=== PATIENT | female | born 1940 | race African-American/Black ===

== ENCOUNTER 2021-12-02 11:38 | Emergency (ER) | payer OTHER ==
[~2021-12-02] VITALS: Ht 165.1 cm; Wt 75.7 kg
[2021-12-02 13:42] LABS: Albumin 3.6 g/dL (3.4-5.0); BUN/Creatinine Ratio 16.7; Calcium 9.5 mg/dL (8.5-10.1); Potassium 4.8 mmol/L (3.5-5.1)
[2021-12-02 13:45] LABS: Bilirubin, Total 0.2 mg/dL (0.2-1.0); Total Protein 6.8 g/dL (6.4-8.2)
[2021-12-02 13:46] LABS: Basophils # (auto) 0 10 ^3/uL (0-0.2); Eosinophils # (auto) 0 10 ^3/uL (0-0.8); Hemoglobin 9.8 g/dL (12.2-16.2); Monocytes # (auto) 0.5 10 ^3/uL (0-1.3); White Blood Cell 4.9 10^3/uL (4.4-10.8)
[2021-12-02 13:52] LABS: Eosinophils % (auto) 0.7 % (0.0-7.0); Lymphocytes # (auto) 0.9 10 ^3/uL (0.4-5.4); Mean Corpuscular Volume 79.4 fL (80.0-100.0); Monocytes % (auto) 10.8 % (0.0-12.0); Neutrophils # (auto) 3.4 10 ^3/uL (1.6-8.6); Red Cell Distribution Width 14.3 % (11.8-14.3)
[2021-12-02 13:53] LABS: Basophils % (auto) 0.7 % (0.0-2.0); Lymphocytes % (auto) 19.6 % (10.0-50.0); Neutrophils % (auto) 68.2 % (37.0-80.0); Nucleated Red Blood Cells % 0.1 %
[2021-12-02 13:54] LABS: Hematocrit 30.9 % (36.0-46.0); Mean Corpuscular Hgb Conc. 31.9 g/dL (32.0-36.0); Red Blood Cells 3.88 10^6/uL (4.0-5.20)
[2021-12-02 13:59] LABS: INR 1.03 (0.9-1.15)
[2021-12-02] MEDS ORDERED: IOHEXOL 350 MG/ML 100ML IJ ONE (14:05)
[2021-12-02 18:41] VITALS: BP 174/64
== END 2021-12-02 19:08 | disposition short-term general hospital (02) ==
LOC: ER 11:38
DX: I96 Gangrene, not elsewhere classified (principal); Z88.2 Allergy status to sulfonamides; Z20.822 Contact with and (suspected) exposure to COVID-19
CPT/HCPCS: 36415; 73201; 80053; 82962; 85025; 85610; 87426; 99285; C9803; Q9967; U0003

== ENCOUNTER 2024-02-16 09:12 | Emergency (ER) | payer OTHER ==
[~2024-02-16] VITALS: Ht 152.4 cm; Wt 71.1 kg
[2024-02-16 11:11] LABS: Basophils # (auto) 0 10 ^3/uL (0-0.2); Hemoglobin 9.7 g/dL (12.2-16.2); Monocytes # (auto) 0.7 10 ^3/uL (0-1.3)
[2024-02-16 11:13] LABS: Basophils % (auto) 0.6 % (0.0-2.0); Eosinophils # (auto) 0 10 ^3/uL (0-0.8); Eosinophils % (auto) 0.5 % (0.0-7.0); Hematocrit 30.9 % (36.0-46.0); Lymphocytes # (auto) 0.7 10 ^3/uL (0.4-5.4); Lymphocytes % (auto) 8.7 % (10.0-50.0); Mean Corpuscular Hemoglobin 24.5 pg (28.0-32.0); Mean Corpuscular Hgb Conc. 31.3 g/dL (32.0-36.0); Mean Corpuscular Volume 78.4 fL (80.0-100.0); Monocytes % (auto) 8.3 % (0.0-12.0); Neutrophils # (auto) 7.1 10 ^3/uL (1.6-8.6); Neutrophils % (auto) 81.9 % (37.0-80.0); Nucleated Red Blood Cells % 0.2 %; Red Blood Cells 3.95 10^6/uL (4.0-5.20); Red Cell Distribution Width 14.9 % (11.8-14.3); White Blood Cell 8.6 10^3/uL (4.4-10.8)
[2024-02-16 11:23] LABS: Alanine Aminotransferase 15 U/L (7-40); Albumin 3.5 g/dL (3.2-4.8); Alkaline Phosphatase 77 U/L (46-116); Anion Gap 10 (5-15); Aspartate Aminotransferase 20 U/L (13-40); BUN/Creatinine Ratio 11.8 (10.0-20.0); Bilirubin, Total 0.4 mg/dL (0.2-1.0); Blood Urea Nitrogen 17 mg/dL (9-23); Carbon Dioxide 18 mmol/L (20-30); Chloride 111 mmol/L (98-107); Glucose 83 mg/dL (74-106); Potassium 4.1 mmol/L (3.5-5.1); Sodium 139 mmol/L (136-145)
[2024-02-16 11:24] LABS: Total Protein 5.5 g/dL (5.7-8.2)
[2024-02-16 12:02] VITALS: BP 139/53; PULSE 89; RESP 16; TEMP 98.6; O2SAT 96
[2024-02-16 12:17] LABS: Urine Bacteria FEW /hpf (None Seen); Urine Blood Negative /uL (Negative); Urine Budding Yeast OCCASIONAL /hpf (None Seen); Urine Clarity Turbid (Clear); Urine Color Yellow (Yellow); Urine Hyaline Cast FEW /lpf (0 - 2); Urine Mucus FEW (None Seen); Urine Protein, UAD TRACE (Negative); Urine Specific Gravity 1.015 (1.001-1.035); Urine Urobilinogen Normal (Negative); Urine WBC 16 /hpf (0 - 5)
[2024-02-16] MEDS ORDERED: NITR-87 PO (12:27)
== END 2024-02-16 12:39 | disposition home or self-care (01) ==
LOC: ER 09:12
DX: E11.22 Type 2 diabetes mellitus with diabetic chronic kidney disease (principal); N18.30 Chronic kidney disease, stage 3 unspecified; N39.0 Urinary tract infection, site not specified; Z88.2 Allergy status to sulfonamides
CPT/HCPCS: 36415; 80053; 81001; 85025

== ENCOUNTER 2024-09-15 08:38 | Inpatient (IN) | payer OTHER ==
[2024-09-15] VITALS (10 sets, daily range): BP systolic 154–156; BP diastolic 55–90; PULSE 82–102; RESP 12–25; TEMP 98–98.7; O2SAT 92–100
[~2024-09-15] VITALS: Ht 152.4 cm; Wt 69.1 kg
[~2024-09-15 08:38] MED LIST: NITR-87 PO
--- NOTE | 2024-09-15 08:59 | ECG ---
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
--- NOTE | 2024-09-15 09:36 | ED.PDOC ---
Altered Mental Status HPI Comments 84-year-old female brought in by EMS presents with a chief complaint of ALOC x 1 day. Patient has history of Dementia, but according to EMS is typically A/Ox4 and GCS 15 per family at the scene. Patient was exposed recently to COVID-19 via her son who takes care of her. Patient is alert and able to answers questions, but is "confused". Blood sugar was 131. Chief Complaint: ALOC Time Seen by MD: 09:07 Primary Care Provider: DR WAITE Reviewed Notes: Medications, Allergies Allergies: Coded Allergies: Sulfa Antibiotics (Verified Allergy, Unknown, 12/02/21) Home Meds Active Scripts Nitrofurantoin Monohydrate Mac (Macrobid) 100 Mg Cap, 100 MG PO BID, #20 CAP Prov:THOM CLARK 02/16/24 Information Source: Patient, Emergency Med Personnel Mode of Arrival: EMS Severity: Unable to Care for Self Timing: Days Duration: Since onset Prehospital treatment: Accucheck Quality: Confusion Recent: None History of: Dementia Associated Signs and Symptoms: None Past Medical History PAST MEDICAL HISTORY: Anemia, DM Surgical History: Denies all surgeries 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 Family History Family History: Reviewed,noncontributory to illness Social History Smoker: Non-Smoker Alcohol: Denies ETOH Use Drugs: Denies Drug Use Lives In: Home Constitutional: denies: chills, diaphoresis, fatigue, fever, malaise, sweats, weakness, others EENTM: denies: blurred vision, double vision, ear bleeding, ear discharge, ear drainage, ear pain, ear ringing, eye pain, eye redness, hearing loss, mouth pain, mouth swelling, nasal discharge, nose bleeding, nose congestion, nose pain, photophobia, tearing, throat pain, throat swelling, voice changes, others Respiratory: denies: cough, hemoptysis, orthopnea, SOB at rest, shortness of breath, SOB with excertion, stridor, wheezing, others Cardiovascular: denies: chest pain, dizzy spells, diaphoresis, Dyspnea on exertion, edema, irregular heart beat, left arm pain, lightheadedness, palpitations, PND, syncope, others Gastrointestinal: denies: abdomen distended, abdominal pain, blood streaked bowels, constipated, diarrhea, dysphagia, difficulty swallowing, hematemesis, melena, nausea, poor appetite, poor fluid intake, rectal bleeding, rectal pain, vomiting, others Genitourinary: denies: abnormal vagina bleeding, burning, dyspareunia, dysuria, flank pain, frequency, hematuria, incontinence, pain, , vagina discharge, urgency, others Neurological: denies: dizziness, fainting, headache, left sided numbness, left sided weakness, numbness, paresthesia, pre-existing deficit, right sided numbness, right sided weakness, seizure, speech problems, tingling, tremors, weakness, others Musculoskeletal: denies: back pain, gout, joint pain, joint swelling, muscle pain, muscle stiffness, neck pain, others Integumetry: denies: bruises, change in color, change in hair/nails, dryness, laceration, lesions, lumps, rash, wounds, others Allergic/Immunocompromised: denies: Difficulty Healing, Frequent Infections, Hives, Itching, others Hematologic/Lymphatic: denies: anemia, blood clots, easy bleeding, easy bruising, swollen glands, others Endocrine: denies: excessive hunger, excessive sweating, excessive thirst, excessive urination, flushing, intolerance to cold, intolerance to heat, unexplained weight gain, unexplained weight loss, others Psychiatric: denies: anxiety, bipolar disorder, depression, hopeless, panic disorder, schizophrenia, sleepless, suicidal, others Unable to Obtain due to: Altered Mental Status All Other Systems: Reviewed and Negative Physical Exam General Appearance: No Apparent Distress, Normal, Other (PLESANTLY CONFUSED ) HEENT: Normal ENT Inspection, Pharynx Normal, TMs Normal Neck: Full Range of Motion, Non-Tender, Normal, Normal Inspection Respiratory: Chest Non-Tender, Lungs Clear, No Accessory Muscle Use, No Respiratory Distress, Normal Breath Sounds Cardiovascular: No Edema, No JVD, No Murmur, No Gallop, Normal Peripheral Pulses, Regular Rate/Rhythm Breast Exam: Deferred Gastrointestinal: No Organomegaly, Non Tender, No Pulsatile Mass, Normal Bowel Sounds, Soft Genitalia: Deferred Pelvic: Deferred Rectal: Deferred Extremities: No calf tenderness, Normal capillary refill, Normal inspection, Normal range of motion, Non-tender, No pedal edema Musculoskeletal : Apperance: Normal Neurologic: Alert, No Motor Deficits, Normal Affect, Normal Mood, No Sensory Deficits Cerebellar Function: Normal Reflexes: Normal Skin: Dry, Normal Color, Warm Lymphatic: No Adenopathy EKG EKG : Pulse Rate (adult): 92 Carefree: Normal Cardiac Rhythm: NSR Block: None Hypertrophy: None ST: Normal Comments T-WAVE FLATTENING IN LATERAL LEADS, PROLONG QTC at 547. Was a procedure done? Was a procedure done?: No Differential Diagnosis (ALOC) Differential Diagnosis: Dehydration, Hypoglycemia, Encephalopathy, Sepsis, CVA X-Ray, Labs, Meds, VS Vital Signs Date Time Temp Pulse Resp B/P (MAP) Pulse Ox O2 Delivery O2 Flow Rate FiO2 09/15/24 12:52 98.8 87 16 159/55 (89) 97 98.8 09/15/24 09:38 Room Air* 0 21 09/15/24 09:36 09/15/24 08:50 99.0 93 16 150/64 (92) 97 99.0 09/15/24 08:50 99.0 93 16 150/64 (92) 97 09/15/24 08:45 92 Lab Test 09/15/24 09:46 09/15/24 09:39 09/15/24 08:52 Range/Units SARS-CoV-2 Antigen (Rapid) Positive NEGATIVE White Blood Count 6.8 4.4-10.8 10^3/uL Red Blood Count 3.96 L 4.0-5.20 10^6/uL Hemoglobin 9.9 L 12.2-16.2 g/dL Hematocrit 30.9 L 36.0-46.0 % Mean Corpuscular Volume 78.0 L 80.0-100.0 fL Mean Corpuscular Hemoglobin 25.1 L 28.0-32.0 pg Mean Corpuscular Hemoglobin Concent 32.2 32.0-36.0 g/dL Red Cell Distribution Width 13.9 11.8-14.3 % Platelet Count 201 140-450 10^3/uL Mean Platelet Volume 7.1 6.9-10.8 fL Neutrophils (%) (Auto) 81.1 H 37.0-80.0 % Lymphocytes (%) (Auto) 4.1 L 10.0-50.0 % Monocytes (%) (Auto) 14.5 H 0.0-12.0 % Eosinophils (%) (Auto) 0.1 0.0-7.0 % Basophils (%) (Auto) 0.2 0.0-2.0 % Neutrophils # (Auto) 5.5 1.6-8.6 10 ^3/uL Lymphocytes # (Auto) 0.3 L 0.4-5.4 10 ^3/uL Monocytes # (Auto) 1.0 0-1.3 10 ^3/uL Eosinophils # (Auto) 0 0-0.8 10 ^3/uL Basophils # (Auto) 0 0-0.2 10 ^3/uL Nucleated Red Blood Cells 0.0 % Sodium Level 140 136-145 mmol/L Potassium Level 4.8 3.5-5.1 mmol/L Chloride Level 108 H 98-107 mmol/L Carbon Dioxide Level 21 20-31 mmol/L Anion Gap 11 5-15 Blood Urea Nitrogen 22 9-23 mg/dL Creatinine 1.38 H 0.550-1.02 mg/dL Glomerular Filtration Rate Calc 38 >90 mL/min BUN/Creatinine Ratio 15.9 10.0-20.0 Serum Glucose 133 H 74-106 mg/dL Calcium Level 9.9 8.7-10.4 mg/dL POC Glucose 142 H 70-106 mg/dl PATIENT: MAYKEL HILL ACCT: [id number] UNIT: [id number] : 1940 LOC: ER ROOM / BED: / AGE / SEX: 84 / F ADM STATUS: REG ER SERVICE 0924 ORDERING PHYSICIAN: JAMIE LOZA MD PROCEDURE(s): HWOCT - HEAD WITHOUT CONTRAST REASON: ro head bleed ORDER NUMBER(s): [id number], ACCESSION NUMBER(s): [id number] EXAM: CT HEAD WITHOUT CONTRAST INDICATION: ro head bleed TECHNIQUE: CT of the head without intravenous contrast. Coronal and sagittal reformatted images are submitted. Radiation Dose : 1. Head: CT Dose: CTDI volume is 60.96 mGy. Dose-length product is 1079.24 mGy*cm The dose indicators for CT are the volume Computed Tomography (CT) Dose Index (CTDIvol) and the Dose Length Product (DLP), and are measured in units of mGy and mGy-cm, respectively. These indicators are not patient dose, but values generated from the CT scanner acquisition factors. The report includes radiation exposure data for exposures received during this examination. All CT scans at this medical facility are performed using dose modulation techniques as appropriate to a performed exam including the following: Automated exposure control was utilized; adjustment of the MA and/or KV according to patient size; and use of iterative reconstruction technique. COMPARISON: None FINDINGS: There is no evidence of acute intracranial hemorrhage, extra-axial collection, mass effect, midline shift, herniation or hydrocephalus. There are periventricular and subcortical hypodensities, nonspecific, but likely reflecting sequelae of chronic microvascular ischemic changes. There is a calcified posterior right frontal lobe mass measuring 1.5 x 1.4 cm. The ventricles, sulci and cisterns are age appropriate. The call-white differentiation is intact. The visualized paranasal sinuses and mastoid air cells are clear. No depressed calvarial fracture. The surrounding soft tissues are unremarkable. IMPRESSION: 1. No evidence of acute intracranial abnormality. 2. Partially calcified 1.5 cm posterior right frontal lobe mass most consistent with a meningioma. ATED BY: MAYA BALDWIN MD DICTATED DATE/TIME: 09/15/24 100 SIGNED BY: MAYA BALDWIN MD SIGNED DATE/TIME: 09/15/24 100 PATIENT: MAYKEL HILL ACCT: [id number] UNIT: [id number] : 1940 LOC: ER ROOM / BED: / AGE / SEX: 84 / F ADM STATUS: REG ER SERVICE 0934 ORDERING PHYSICIAN: JAMIE LOZA MD PROCEDURE(s): CXR1 - CHEST XRAY 1 VIEW REASON: R/O PNA ORDER NUMBER(s): [id number], ACCESSION NUMBER(s): [id number] Procedure: XY CHEST XRAY 1 VIEW 09/15/2024 09:49 AM Indication: R/O PNA Comparison: None TECHNIQUE: XY CHEST XRAY 1 VIEW FINDINGS: Medical devices: None. Cardiomediastinal: The heart is normal in size. Pulmonary vasculature is within normal limits. Atherosclerotic calcification of the aortic arch noted. Lungs: No focal pulmonary opacity is seen. The costophrenic angles are clear. No pneumothorax. Bones/soft tissues: No acute abnormality is noted. IMPRESSION: 1. No acute cardiopulmonary disease. ATED BY: ODETTE MADSEN MD DICTATED DATE/TIME: 09/15/24 1016 SIGNED BY: ODETTE MADSEN MD SIGNED DATE/TIME: 09/15/24 1016 84-year-old female presents here with a LOC. on my examination she is able to answer all questions but per family she was confused more than normal. This time blood work has been done which does demonstrate evidence of anemia of unclear etiology. There was questionable fall therefore a CT scan of the brain has been done which demonstrates evidence of a meningioma but no evidence of intracranial hemorrhage. Son is positive for COVID therefore a test patient for COVID and she was also positive. At this time I believe she would benefit from inpatient admission. Hospitalist team has been contacted for admission. Time of 1ST Reevaluation: 09:37 Reevaluation 1ST: Unchanged Patient Education/Counseling: Diagnosis, Treatment, Prognosis Family Education/Counseling: Diagnosis, Treatment, Prognosis Departure 1 Departure Time of Disposition: 11:32 Impression: Primary Impression: Altered mental status Qualified Codes: R40.4 - Transient alteration of awareness Additional Impressions: Meningioma COVID-19 Anemia Qualified Codes: D64.9 - Anemia, unspecified Disposition: ADMITTED INPATIENT Admit to: Med Surg Condition: Fair Critical Care Note Critical Care Time?: No Stability Stability form required: No I personally scribed for JAMIE LOZA MD ([email or web address]) on 09/15/24 at 09:36. Electronically submitted by Davey Veliz ([email or web address]). I personally scribed for JAMIE LOZA MD ([email or web address]) on 09/15/24 at 12:31. Electronically submitted by Davey Veliz ([email or web address]). JAMIE LOZA MD Sep 15, 2024 09:36
[2024-09-15 09:45] LABS: Basophils # (auto) 0 10 ^3/uL (0-0.2); Basophils % (auto) 0.2 % (0.0-2.0); Eosinophils # (auto) 0 10 ^3/uL (0-0.8); Eosinophils % (auto) 0.1 % (0.0-7.0); Lymphocytes # (auto) 0.3 10 ^3/uL (0.4-5.4)
[2024-09-15 09:47] LABS: Hematocrit 30.9 % (36.0-46.0); Hemoglobin 9.9 g/dL (12.2-16.2); Lymphocytes % (auto) 4.1 % (10.0-50.0); Mean Corpuscular Hemoglobin 25.1 pg (28.0-32.0); Mean Corpuscular Hgb Conc. 32.2 g/dL (32.0-36.0); Monocytes % (auto) 14.5 % (0.0-12.0); Neutrophils # (auto) 5.5 10 ^3/uL (1.6-8.6); Neutrophils % (auto) 81.1 % (37.0-80.0); Platelet Count (auto) 201 10^3/uL (140-450); Red Blood Cells 3.96 10^6/uL (4.0-5.20); Red Cell Distribution Width 13.9 % (11.8-14.3); White Blood Cell 6.8 10^3/uL (4.4-10.8)
[2024-09-15 09:56] LABS: Potassium 4.8 mmol/L (3.5-5.1); Sodium 140 mmol/L (136-145)
[2024-09-15 09:57] LABS: Anion Gap 11 (5-15); Carbon Dioxide 21 mmol/L (20-31)
[2024-09-15 09:58] LABS: Calcium 9.9 mg/dL (8.7-10.4)
[2024-09-15 10:03] LABS: BUN/Creatinine Ratio 15.9 (10.0-20.0); Blood Urea Nitrogen 22 mg/dL (9-23)
[2024-09-15 10:04] LABS: Chloride 108 mmol/L (98-107); Glucose 133 mg/dL (74-106)
--- NOTE | 2024-09-15 10:06 | DVH ---
EXAM: CT HEAD WITHOUT CONTRAST INDICATION: ro head bleed TECHNIQUE: CT of the head without intravenous contrast. Coronal and sagittal reformatted images are submitted. Radiation Dose : 1. Head: CT Dose: CTDI volume is 60.96 mGy. Dose-length product is 1079.24 mGy*cm The dose indicators for CT are the volume Computed Tomography (CT) Dose Index (CTDIvol) and the Dose Length Product (DLP), and are measured in units of mGy and mGy-cm, respectively. These indicators are not patient dose, but values generated from the CT scanner acquisition factors. The report includes radiation exposure data for exposures received during this examination. All CT scans at this medical facility are performed using dose modulation techniques as appropriate to a performed exam including the following: Automated exposure control was utilized; adjustment of the MA and/or KV according to patient size; and use of iterative reconstruction technique. COMPARISON: None FINDINGS: There is no evidence of acute intracranial hemorrhage, extra-axial collection, mass effect, midline s hift, herniation or hydrocephalus. There are periventricular and subcortical hypodensities, nonspecific, but likely reflecting sequelae of chronic microvascular ischemic changes. There is a calcified posterior right frontal lobe mass measuring 1.5 x 1.4 cm. The ventricles, sulci and cisterns are age appropriate. The call-white differentiation is intact. The visualized paranasal sinuses and mastoid air cells are clear. No depressed calvarial fracture. The surrounding soft tissues are unremarkable. IMPRESSION: 1. No evidence of acute intracranial abnormality. 2. Partially calcified 1.5 cm posterior right frontal lobe mass most consistent with a meningioma.
--- NOTE | 2024-09-15 10:18 | DVH ---
Procedure: XY CHEST XRAY 1 VIEW 09/15/2024 09:49 AM Indication: R/O PNA Comparison: None TECHNIQUE: XY CHEST XRAY 1 VIEW FINDINGS: Medical devices: None. Cardiomediastinal: The heart is normal in size. Pulmonary vasculature is within normal limits. Athero sclerotic calcification of the aortic arch noted. Lungs: No focal pulmonary opacity is seen. The costophrenic angles are clear. No pneumothorax. Bones/soft tissues: No acute abnormality is noted. IMPRESSION: 1. No acute cardiopulmonary disease.
[2024-09-15 10:52] LABS: COVID19 ANTIGEN SOFIA FIA POSITIVE (NEGATIVE)
[2024-09-15 17:14] LABS: Urine Bacteria FEW /hpf (None Seen); Urine Blood Negative /uL (Negative); Urine Clarity Clear (Clear); Urine Color Light-Yellow (Yellow); Urine Protein, UAD 1+ (Negative); Urine Specific Gravity 1.016 (1.001-1.035); Urine Squamous Epithelial Cell FEW /hpf (<5); Urine Urobilinogen Normal (Negative); Urine WBC 1 /HPF (0-5); Urine pH 5.5 (5.0-9.0)
[2024-09-15] MEDS ORDERED: AZITHROMYCIN 500MG/ 250ML 250 ML IV ONE (17:15)
[2024-09-15] MEDS ORDERED: DEXTROSE (50%) 50ML SYRG IV PRN (17:15)
[2024-09-15] MEDS ORDERED: ALBUTEROL SULF 2.5 MG/0.5ML(0.5%) NEB SOLN NEB PRN (17:15)
[2024-09-15 18:06] LABS: Amphetamine Screen, Urine Neg (NEGATIVE); Barbiturate Scree,Urine Neg (NEGATIVE); Benzodiazephine Screen, Urine Neg (NEGATIVE); Cannabinoid Screen, Urine Neg (NEGATIVE); Cocaine Screen, Urine Neg (NEGATIVE); Opiate Scree,Urine Neg (NEGATIVE); Phencyclidine Screen, Urine Neg (NEGATIVE)
[2024-09-15] MEDS: cefTRIAXone 1GM/50ML D5W 50 ML IV ONE (18:07)
[2024-09-15] MEDS: SODIUM CHLORIDE 0.9% 1,000 ML IV SCH (18:07)
[2024-09-15] MEDS: DOXYCYCLINE 100MG/100ML 100 ML IV ONE (18:07)
--- NOTE | 2024-09-15 18:26 | DVHHP2 ---
History of Present Illness Reason for Visit: COVID positive History of Present Illness 84-year-old female brought in by EMS presents with a chief complaint of ALOC x 1 day. Patient has history of Dementia, but according to EMS is typically A/Ox4 and GCS 15 per family at the scene. Patient was exposed recently to COVID-19 via her son who takes care of her. Patient is alert and able to answers questions, but is "confused". Blood sugar was 131. Heme/Onc: Anemia NOS Endocrine: Diabetes Past Surgical History: None Family History: None Smoke: No ALCOHOL: none Drugs: None Lives: with Family Domestic Violence: Neg Review of Systems Neurological: Confusion Allergies: Coded Allergies: Sulfa Antibiotics (Verified Allergy, Unknown, 12/02/21) Medications Current Medications Medications Dose Ordered Sig/Eddie Route Start Time Stop Time Status Last Admin Dose Admin Albuterol 2.5 mg Q4HR NEB 09/15/24 18:00 Albuterol 2.5 mg Q2HPRN PRN NEB 09/15/24 17:15 Ipratropium [place] 0.5 mg Q4HR NEB 09/15/24 18:00 Sodium Chloride 1,000 ml @ 60 mls/hr [id number] IV 09/15/24 17:15 09/15/24 18:07 60 MLS/HR Enoxaparin Sodium 40 mg DAILY SC 09/16/24 10:00 Acetaminophen 650 mg Q6HP PRN PO 09/15/24 17:15 Ceftriaxone Sodium 50 ml @ 100 mls/hr DAILY@09 IV 09/16/24 09:00 Diagnostic Test (Pha) 1 strip ACHS 09/15/24 22:00 Insulin Human Regular ACHS SC 09/15/24 22:00 Dextrose 50 ml UD PRN IV 09/15/24 17:15 Doxycycline Hyclate 100 ml @ 50 mls/hr Q12H IV 09/16/24 10:00 Exam Vital Signs Vital Signs Date Time Temp Pulse Resp B/P (MAP) Pulse Ox O2 Delivery O2 Flow Rate FiO2 09/15/24 15:57 82 16 96 Room Air* 0 21 09/15/24 15:57 98.0 122/71 (88) 98.0 General Appearance: Alert (X2), Cooperative HEENT: Atraumatic, PERRLA, EOMI, Mucous membr. moist/pink Respiratory: Clear to auscultation, Normal air movement Cardiovascular: Normal S1, Normal S2, No murmurs Abdominal: Normal bowel sounds, Soft, No tenderness, No hepatospenomegaly, No masses Extremities: No clubbing, No cyanosis, No edema, Normal pulses, No tenderness/swelling Neuro: Strength at 5/5 X4 ext, Normal tone Labs/Xrays Labs Test 09/15/24 16:40 09/15/24 09:46 09/15/24 09:39 09/15/24 08:52 Range/Units Urine Color Light-yellow Yellow Urine Clarity Clear Clear Urine pH 5.5 5.0-9.0 Urine Specific [place] 1.016 1.001-1.035 Urine Protein 1+ H Negative Urine Ketones Negative Negative Urine Blood Negative Negative /uL Urine Nitrite Negative Negative Urine Bilirubin Negative Negative Urine Urobilinogen Normal Negative mg/dL Urine Leukocyte Esterase Negative Negative /uL Urine RBC 1 0 - 4 /hpf Urine Microscopic WBC 1 0-5 /HPF Urine Squamous Epithelial Cells Few <5 /hpf Urine Bacteria Few H None Seen /hpf Urine Glucose Normal Normal mg/dL Urine Opiates Screen Neg NEGATIVE Urine Fentanyl Screen Neg NEGATIVE Urine Barbiturates Screen Neg NEGATIVE Urine Phencyclidine Screen Neg NEGATIVE Urine Amphetamines Screen Neg NEGATIVE Urine Benzodiazepines Screen Neg NEGATIVE Urine Cocaine Screen Neg NEGATIVE Urine Cannabinoids Screen Neg NEGATIVE SARS-CoV-2 Antigen (Rapid) Positive NEGATIVE White Blood Count 6.8 4.4-10.8 10^3/uL Red Blood Count 3.96 L 4.0-5.20 10^6/uL Hemoglobin 9.9 L 12.2-16.2 g/dL Hematocrit 30.9 L 36.0-46.0 % Mean Corpuscular Volume 78.0 L 80.0-100.0 fL Mean Corpuscular Hemoglobin 25.1 L 28.0-32.0 pg Mean Corpuscular Hemoglobin Concent 32.2 32.0-36.0 g/dL Red Cell Distribution Width 13.9 11.8-14.3 % Platelet Count 201 140-450 10^3/uL Mean Platelet Volume 7.1 6.9-10.8 fL Neutrophils (%) (Auto) 81.1 H 37.0-80.0 % Lymphocytes (%) (Auto) 4.1 L 10.0-50.0 % Monocytes (%) (Auto) 14.5 H 0.0-12.0 % Eosinophils (%) (Auto) 0.1 0.0-7.0 % Basophils (%) (Auto) 0.2 0.0-2.0 % Neutrophils # (Auto) 5.5 1.6-8.6 10 ^3/uL Lymphocytes # (Auto) 0.3 L 0.4-5.4 10 ^3/uL Monocytes # (Auto) 1.0 0-1.3 10 ^3/uL Eosinophils # (Auto) 0 0-0.8 10 ^3/uL Basophils # (Auto) 0 0-0.2 10 ^3/uL Nucleated Red Blood Cells 0.0 % Sodium Level 140 136-145 mmol/L Potassium Level 4.8 3.5-5.1 mmol/L Chloride Level 108 H 98-107 mmol/L Carbon Dioxide Level 21 20-31 mmol/L Anion Gap 11 5-15 Blood Urea Nitrogen 22 9-23 mg/dL Creatinine 1.38 H 0.550-1.02 mg/dL Glomerular Filtration Rate Calc 38 >90 mL/min BUN/Creatinine Ratio 15.9 10.0-20.0 Serum Glucose 133 H 74-106 mg/dL Calcium Level 9.9 8.7-10.4 mg/dL POC Glucose 142 H 70-106 mg/dl ORDERING PHYSICIAN: JAMIE LOZA MD PROCEDURE(s): CXR1 - CHEST XRAY 1 VIEW REASON: R/O PNA ORDER NUMBER(s): [id number], ACCESSION NUMBER(s): [id number] Procedure: XY CHEST XRAY 1 VIEW 09/15/2024 09:49 AM Indication: R/O PNA Comparison: None TECHNIQUE: XY CHEST XRAY 1 VIEW FINDINGS: Medical devices: None. Cardiomediastinal: The heart is normal in size. Pulmonary vasculature is within normal limits. Atherosclerotic calcification of the aortic arch noted. Lungs: No focal pulmonary opacity is seen. The costophrenic angles are clear. No pneumothorax. Bones/soft tissues: No acute abnormality is noted. IMPRESSION: 1. No acute cardiopulmonary disease. ATED BY: ODETTE MADSEN MD DICTATED DATE/TIME: 09/15/24 1016 SIGNED BY: ODETTE MADSEN MD SIGNED DATE/TIME: 09/15/24 1016 CC: ORDERING PHYSICIAN: JAMIE LOZA MD PROCEDURE(s): HWOCT - HEAD WITHOUT CONTRAST REASON: ro head bleed ORDER NUMBER(s): [id number], ACCESSION NUMBER(s): [id number] EXAM: CT HEAD WITHOUT CONTRAST INDICATION: ro head bleed TECHNIQUE: CT of the head without intravenous contrast. Coronal and sagittal reformatted images are submitted. Radiation Dose : 1. Head: CT Dose: CTDI volume is 60.96 mGy. Dose-length product is 1079.24 mGy*cm The dose indicators for CT are the volume Computed Tomography (CT) Dose Index (CTDIvol) and the Dose Length Product (DLP), and are measured in units of mGy and mGy-cm, respectively. These indicators are not patient dose, but values generated from the CT scanner acquisition factors. The report includes radiation exposure data for exposures received during this examination. All CT scans at this medical facility are performed using dose modulation techniques as appropriate to a performed exam including the following: Automated exposure control was utilized; adjustment of the MA and/or KV according to patient size; and use of iterative reconstruction technique. COMPARISON: None FINDINGS: There is no evidence of acute intracranial hemorrhage, extra-axial collection, mass effect, midline shift, herniation or hydrocephalus. There are periventricular and subcortical hypodensities, nonspecific, but likely reflecting sequelae of chronic microvascular ischemic changes. There is a calcified posterior right frontal lobe mass measuring 1.5 x 1.4 cm. The ventricles, sulci and cisterns are age appropriate. The call-white differentiation is intact. The visualized paranasal sinuses and mastoid air cells are clear. No depressed calvarial fracture. The surrounding soft tissues are unremarkable. IMPRESSION: 1. No evidence of acute intracranial abnormality. 2. Partially calcified 1.5 cm posterior right frontal lobe mass most consistent with a meningioma. ATED BY: MAYA BALDWIN MD DICTATED DATE/TIME: 09/15/24 1003 SIGNED BY: MAYA BALDWIN MD SIGNED DATE/TIME: 09/15/24 1003 CC: Assessment/Plan Assessment/Plan COVID-19 viral infection--chief complaint of ALOC x1 day per family History of dementia but recent decreased alertness Reviewed CBC hemoglobin 9.9 Reviewed BMP creatinine 1.[address] head shows meningioma 1.5 cm Reviewed chest x-ray which is normal IV azithromycin and ceftriaxone DuoNeb q.4 hours Reorient patient to surrounding Anemia No active bleeding Continue to monitor lab Type 2 DM Regular insulin mild SS a.c. and HS Accu-Cheks per protocol Continue to monitor Reconcile home medication DVT prophylaxis PUD prophylaxis Labs in a.m. Discussed plan of care with the patient in which all questions concerns have been addressed Plan discussed with: Patient My Orders Orders - LAURI RODRIGUEZ [employer] WORK[employer] Procedure Category Date Status Time Albuterol Medneb PHA 09/15/24 In Process (Ventolin Medneb) 18:00 Albuterol Medneb PHA 09/15/24 In Process (Ventolin Medneb) 17:15 Ipratropium Medneb PHA 09/15/24 In Process (Atrovent Medneb) 18:00 Admit ADMIT 09/15/24 Transmitted 17:04 Sodium Chloride 0.9% PHA 09/15/24 In Process 17:15 Enoxaparin Sodium PHA 09/16/24 In Process (Lovenox) 10:00 Complete Blood Count LAB 09/16/24 Verified 04:00 Comprehensive LAB 09/16/24 Verified Metabolic Panel 04:00 Pt Request For Service PT 09/15/24 Logged 17:04 Condition: Fair BRUCE 09/15/24 In Process 17:04 Acetaminophen Tablet PHA 09/15/24 In Process (Tylenol Tablet) 17:15 Bedrest With Bathroom BRUCE 09/15/24 In Process Privileg 17:04 Ceftriaxone 1gm/50ml PHA 09/16/24 In Process D5w (Rocephin) 09:00 Glucose Blood PHA 09/15/24 In Process (Accu-Chek Comfort 22:00 Insulin R (Human) PHA 09/15/24 In Process (Insulin R) 22:00 Dextrose 50% Syringe PHA 09/15/24 In Process 17:15 2 Gm Sodium Diet DIET 09/15/24 Transmitted [facility] 09/15/24 In Process Clarification: 17:13 Doxycycline PHA 09/16/24 In Process 100mg/100ml 10:00 Doxycycline PHA 09/15/24 In Process 100mg/100ml 17:30 Date of Service: Sep 15, 2024 Billing Provider: LAURI RODRIGUEZ Common Visit Codes: [id number] INP/OBS CARE (HIGH) LAURI RODRIGUEZ Sep 15, 2024 18:26
[2024-09-15] MEDS: ALBUTEROL SULF 2.5 MG/0.5ML(0.5%) NEB SOLN NEB SCH (19:28)
[2024-09-15] MEDS: IPRATROPIUM BROM 0.5 MG/2.5ML INH SOL NEB SCH (19:29)
[2024-09-15] MEDS ORDERED: LORazepam 2MG/ML-1ML VIAL IV PRN (21:45)
[2024-09-15] MEDS: HALOPERIDOL LACTATE 5 MG/ML INJ VIAL IM ONE (21:47)
[2024-09-15] MEDS: InsuLIN REG 1unit/0.01ml Soln (100units/ml) SC SCH (22:00)
[2024-09-15] MEDS ORDERED: LORazepam 2MG/ML-1ML VIAL IM ONE (22:30)
[2024-09-15] MEDS: ACCU-CHEK COMFORT CURVE STRIP VI SCH (23:03)
[2024-09-16] VITALS (12 sets, daily range): BP systolic 93–151; BP diastolic 39–66; PULSE 62–110; RESP 12–18; TEMP 97.9–99.5; O2SAT 93–100
[2024-09-16] MEDS ORDERED: LISI20TA56 PO (04:35)
[2024-09-16] MEDS ORDERED: ASPI-543 PO (04:35)
[2024-09-16] MEDS ORDERED: FOLI-119 PO (04:35)
[2024-09-16] MEDS ORDERED: AML5T GT (04:35)
[2024-09-16] MEDS ORDERED: CLON0.1T PO (04:35)
[2024-09-16] MEDS ORDERED: LATA0.008 EACHEYE (04:35)
[2024-09-16] MEDS ORDERED: SIMV20TA20 PO (04:35)
[2024-09-16] MEDS ORDERED: LEVO-848 GT (04:35)
[2024-09-16] MEDS ORDERED: FAMO-12 PO (04:35)
[2024-09-16 06:30] LABS: Basophils # (auto) 0 10 ^3/uL (0-0.2); Basophils % (auto) 0.3 % (0.0-2.0); Eosinophils # (auto) 0 10 ^3/uL (0-0.8); Eosinophils % (auto) 0.1 % (0.0-7.0); Hematocrit 28.4 % (36.0-46.0); Hemoglobin 9.1 g/dL (12.2-16.2); Lymphocytes # (auto) 0.4 10 ^3/uL (0.4-5.4); Lymphocytes % (auto) 8.2 % (10.0-50.0); Mean Corpuscular Hemoglobin 25.1 pg (28.0-32.0); Mean Corpuscular Volume 78.5 fL (80.0-100.0); Monocytes # (auto) 0.9 10 ^3/uL (0-1.3); Neutrophils # (auto) 3.7 10 ^3/uL (1.6-8.6); Neutrophils % (auto) 73.4 % (37.0-80.0); Nucleated Red Blood Cells % 0.2 %; Platelet Count (auto) 190 10^3/uL (140-450); Red Blood Cells 3.62 10^6/uL (4.0-5.20); Red Cell Distribution Width 14.1 % (11.8-14.3); White Blood Cell 5.1 10^3/uL (4.4-10.8)
[2024-09-16 06:48] LABS: Alanine Aminotransferase 12 U/L (7-40); Albumin 3.8 g/dL (3.2-4.8); Alkaline Phosphatase 55 U/L (46-116); Anion Gap 10 (5-15); Aspartate Aminotransferase 24 U/L (13-40); BUN/Creatinine Ratio 14.7 (10.0-20.0); Bilirubin, Total 0.3 mg/dL (0.2-1.0); Blood Urea Nitrogen 20 mg/dL (9-23); Calcium 9.8 mg/dL (8.7-10.4); Carbon Dioxide 24 mmol/L (20-31); Chloride 107 mmol/L (98-107); Potassium 3.9 mmol/L (3.5-5.1); Sodium 141 mmol/L (136-145)
[2024-09-16 06:53] LABS: Glucose 109 mg/dL (74-106); Total Protein 5.5 g/dL (5.7-8.2)
[2024-09-16] MEDS ORDERED: ENOXAPARIN SOD 40 MG/0.4 ML SYRINGE SC SCH (10:00)
[2024-09-16] MEDS ORDERED: AZITHROMYCIN 500MG/ 250ML 250 ML IV SCH (10:00)
[2024-09-16] MEDS: cefTRIAXone 1GM/50ML D5W 50 ML IV SCH (10:36)
[2024-09-16] MEDS: ENOXAPARIN SOD 30 MG/0.3 ML SYRINGE SC SCH (10:36)
[2024-09-16] MEDS: DOXYCYCLINE 100MG/100ML 100 ML IV SCH (11:52)
--- NOTE | 2024-09-16 12:53 | DVHPN2 ---
Assessment/Plan Assessment/Plan Progress note 84 F with CKD, dementia, meningioma admitted for COVID. Physical exam Alert, oriented x3 b/l rales s1 s2 rrr abdomen soft nontender no LE edema or tenderness labs ekg imaging reviewed assessment and plan acute hypoxic respiratory failure 2/2 covid PNA acute metabolic encephalopathy 2/2 above, resolved microcytic anemia likely CKD CKD stage 3b Meningioma NIDDM dementia maintain spo2>94% decadron remdesivir resume home meds monitor CR diet renal dvt ppx lovenox medical decision maker Mathew (son) [phone] full code 20 minutes spent discussing goals of care Plan discussed with: Patient My Orders Orders - KIMBERLY BOND MD Procedure Category Date Status Time Albuterol Inhaler PHA 09/16/24 In Process (Ventolin Hfa) 12:00 Date of Service: Sep 16, 2024 Billing Provider: KIMBERLY BOND MD Common Visit Codes: [id number] INP/OBS CARE(HIGH) KIMBERLY BOND MD Sep 16, 2024 12:53
[2024-09-16] MEDS ORDERED: REMDESIVIR PER PHARMACY 0 ML IV SCH (13:00)
[2024-09-16] MEDS: DexAMETHasone SOD PHOS 10MG/1ML VIAL INJ IV ONE (13:22)
[2024-09-16] MEDS: REMDESIVIR 200mg in NS 210mL LOADING DOSE ADULT IV ONE (13:23)
[2024-09-16] MEDS: ACETAMINOPHEN 325 MG TAB PO PRN (22:05)
[2024-09-17 01:35] VITALS: BP 132/68; PULSE 82; RESP 18; TEMP 98; O2SAT 99
[2024-09-17 05:00] VITALS: BP 103/52; PULSE 74; RESP 19; TEMP 98.1; O2SAT 97
[2024-09-17 07:19] LABS: Anion Gap 9 (5-15); Carbon Dioxide 24 mmol/L (20-31); Potassium 3.9 mmol/L (3.5-5.1); Sodium 141 mmol/L (136-145)
[2024-09-17 07:20] LABS: Calcium 9.4 mg/dL (8.7-10.4)
[2024-09-17 07:24] LABS: Glucose 88 mg/dL (74-106)
[2024-09-17 07:25] LABS: BUN/Creatinine Ratio 15.4 (10.0-20.0); Blood Urea Nitrogen 21 mg/dL (9-23); White Blood Cell 2.9 10^3/uL (4.4-10.8)
[2024-09-17 07:28] LABS: Hematocrit 27.4 % (36.0-46.0); Hemoglobin 8.9 g/dL (12.2-16.2); Mean Corpuscular Hemoglobin 25.2 pg (28.0-32.0); Mean Corpuscular Hgb Conc. 32.6 g/dL (32.0-36.0); Mean Corpuscular Volume 77.3 fL (80.0-100.0); Platelet Count (auto) 175 10^3/uL (140-450); Red Blood Cells 3.55 10^6/uL (4.0-5.20); Red Cell Distribution Width 13.7 % (11.8-14.3)
[2024-09-17 07:30] LABS: Chloride 108 mmol/L (98-107)
[2024-09-17 07:32] LABS: Basophils % (manual) 0 (0.0-2.0); Blast Cells 0; Metamyelocytes % 0; Myelocytes % 0; Promyelocytes % 0; Reactive Lymphocytes 0
[2024-09-17 08:00] VITALS: RESP 18
[2024-09-17 08:44] LABS: Band Neutrophils % (manual) 2; Eosinophils % (manual) 2 (0-7); Lymphocytes % (manual) 14 (10.0-50.0); Monocytes % (manual) 23 (0-12)
[2024-09-17 08:45] LABS: Platelet Estimate Adequate
[2024-09-17 09:58] VITALS: PULSE 68; RESP 16; O2SAT 98
[2024-09-17] MEDS: ALBUTEROL SULF HFA 90MCG INH 200DOSE IN PRN (09:58)
[2024-09-17] MEDS: DexAMETHasone SOD PHOS 10MG/1ML VIAL INJ IV SCH (10:55)
--- NOTE | 2024-09-17 12:18 | DVHDS2 ---
Discharge Summary Date of Admission Sep 15, 2024 at 17:04 Date of Discharge: Sep 17, 2024 Labs/Diagnostic Data: Laboratory Results Test 09/17/24 06:20 09/17/24 06:00 09/16/24 05:47 09/15/24 16:40 POC Glucose 87 mg/dl (70-106) White Blood Count 2.9 10^3/uL (4.4-10.8) Red Blood Count 3.55 10^6/uL (4.0-5.20) Hemoglobin 8.9 g/dL (12.2-16.2) Hematocrit 27.4 % (36.0-46.0) Mean Corpuscular Volume 77.3 fL (80.0-100.0) Mean Corpuscular Hemoglobin 25.2 pg (28.0-32.0) Mean Corpuscular Hemoglobin Concent 32.6 g/dL (32.0-36.0) Red Cell Distribution Width 13.7 % (11.8-14.3) Platelet Count 175 10^3/uL (140-450) Mean Platelet Volume 7.5 fL (6.9-10.8) Neutrophils (%) (Auto) % (37.0-80.0) Lymphocytes (%) (Auto) % (10.0-50.0) Monocytes (%) (Auto) % (0.0-12.0) Basophils (%) (Auto) % (0.0-2.0) Neutrophils # (Auto) 10 ^3/uL (1.6-8.6) Lymphocytes # (Auto) 10 ^3/uL (0.4-5.4) Monocytes # (Auto) 10 ^3/uL (0-1.3) Differential Total Cells Counted 100.0 (100) Neutrophils % (Manual) 59 (37.0-80.0) Band Neutrophils % (Manual) 2 Lymphocytes % (Manual) 14 (10.0-50.0) Monocytes % (Manual) 23 (0-12) Eosinophils % (Manual) 2 (0-7) Basophils % (Manual) 0 (0.0-2.0) Metamyelocytes % (manual) 0 Myelocytes % (Manual) 0 Promyelocytes % (Manual) 0 Blast Cells % (Manual) 0 Reactive Lymphocytes 0 Platelet Estimate Adequate Microcytosis Slight Sodium Level 141 mmol/L (136-145) Potassium Level 3.9 mmol/L (3.5-5.1) Chloride Level 108 mmol/L (98-107) Carbon Dioxide Level 24 mmol/L (20-31) Anion Gap 9 (5-15) Blood Urea Nitrogen 21 mg/dL (9-23) Creatinine 1.36 mg/dL (0.550-1.02) Glomerular Filtration Rate Calc 38 mL/min (>90) BUN/Creatinine Ratio 15.4 (10.0-20.0) Serum Glucose 88 mg/dL (74-106) Calcium Level 9.4 mg/dL (8.7-10.4) Eosinophils (%) (Auto) 0.1 % (0.0-7.0) Eosinophils # (Auto) 0 10 ^3/uL (0-0.8) Basophils # (Auto) 0 10 ^3/uL (0-0.2) Nucleated Red Blood Cells 0.2 % Total Bilirubin 0.3 mg/dL (0.2-1.0) Aspartate Amino Transferase (AST) 24 U/L (13-40) Alanine Aminotransferase (ALT) 12 U/L (7-40) Alkaline Phosphatase 55 U/L (46-116) Total Protein 5.5 g/dL (5.7-8.2) Albumin 3.8 g/dL (3.2-4.8) Urine Color Light-yellow (Yellow) Urine Clarity Clear (Clear) Urine pH 5.5 (5.0-9.0) Urine Specific [place] 1.016 (1.001-1.035) Urine Protein 1+ (Negative) Urine Ketones Negative (Negative) Urine Blood Negative /uL (Negative) Urine Nitrite Negative (Negative) Urine Bilirubin Negative (Negative) Urine Urobilinogen Normal mg/dL (Negative) Urine Leukocyte Esterase Negative /uL (Negative) Urine RBC 1 /hpf (0 - 4) Urine Microscopic WBC 1 /HPF (0-5) Urine Squamous Epithelial Cells Few /hpf (<5) Urine Bacteria Few /hpf (None Seen) Urine Glucose Normal mg/dL (Normal) Urine Opiates Screen Neg (NEGATIVE) Urine Fentanyl Screen Neg (NEGATIVE) Urine Barbiturates Screen Neg (NEGATIVE) Urine Phencyclidine Screen Neg (NEGATIVE) Urine Amphetamines Screen Neg (NEGATIVE) Urine Benzodiazepines Screen Neg (NEGATIVE) Urine Cocaine Screen Neg (NEGATIVE) Urine Cannabinoids Screen Neg (NEGATIVE) Test 09/15/24 09:46 SARS-CoV-2 Antigen (Rapid) Positive (NEGATIVE) Other Laboratory Tests 09/17/24 06:00 Brief Hx & Hospital Course: 84 yo F with CKD dementia admitted for aloc, found to have COVID, was placed on NC and bipap initially. started on remdesivir and decadron, able to titrate off O2, patient was sundowning and agitated at night, improved during the day. called son for discharge planning today, son will supervisor picking crew patient today. stable to dc home, will c/2 predisone Condition at Discharge: Good Final Diagnosis/Problems List acute hypoxic respiratory failure 2/2 covid PNA acute metabolic encephalopathy 2/2 above, resolved microcytic anemia likely CKD CKD stage 3b Meningioma NIDDM dementia Discharge Disposition: Home 39 Discharge Statement: "Patient was advised to return to the ER or call 911 if any headaches, dizziness, shortness of breath, chest pain, abdominal pain, bleeding, fevers, or worsening of medical condition. Patient was counseled about treatment plan, medications, possible side effects, patientverbalized understanding. All questions were answered to the best of my ability. This discharge took greater then 30 minutes in planning, reviewing documentation, counseling the patient, and discussing with other team members." ASSESSMENT ASSESSMENT Assessment acute hypoxic respiratory failure 2/2 covid PNA acute metabolic encephalopathy 2/2 above, resolved microcytic anemia likely CKD CKD stage 3b Meningioma NIDDM dementia Date of Service: Sep 17, 2024 Billing Provider: KIMBERLY BOND MD Common Visit Codes: [id number]/OBS DISCH DAY >30min KIMBERLY BOND MD Sep 17, 2024 12:18
[2024-09-17] MEDS ORDERED: LEVO500T91 PO (12:21)
[2024-09-17] MEDS ORDERED: PRED20TA2 PO (12:21)
[2024-09-17] MEDS: REMDESIVIR 200mg in NS 210mL LOADING DOSE ADULT IV ONE (12:45)
[2024-09-17 13:13] VITALS: TEMP 36.7
[2024-09-17] MEDS ORDERED: REMDESIVIR 100mg in NS 230mL (3 DAY REGIMEN) IV SCH (15:00)
[2024-09-18] MEDS ORDERED: ENOXAPARIN SOD 40 MG/0.4 ML SYRINGE SC SCH (10:00)
[2024-09-18] MEDS ORDERED: REMDESIVIR 100mg in NS 230mL (3 DAY REGIMEN) IV SCH (15:00)
== END 2024-09-17 15:59 | disposition home or self-care (01) | DRG 177 ==
LOC: EDBD 08:38 → ER 08:38 → OVERFLOW 17:04 → EAST 23:38
PROVIDERS: ADMIT Student in an Organized Health Care Education/Training Program; ATTEND Student in an Organized Health Care Education/Training Program
PROC: 5A09357 Assistance with Respiratory Ventilation, Less than 24 Consecutive Hours, Continuous Positive Airway Pressure (ICD-10-PCS; principal; 2024-09-15)
PROC: XW033E5 Introduction of Remdesivir Anti-infective into Peripheral Vein, Percutaneous Approach, New Technology Group 5 (ICD-10-PCS; 2024-09-16)
DX: U07.1 COVID-19 (principal); G93.41 Metabolic encephalopathy; J12.82 Pneumonia due to coronavirus disease 2019; J96.01 Acute respiratory failure with hypoxia; F05 Delirium due to known physiological condition; D32.9 Benign neoplasm of meninges, unspecified; D63.1 Anemia in chronic kidney disease; D50.9 Iron deficiency anemia, unspecified; E11.22 Type 2 diabetes mellitus with diabetic chronic kidney disease; N18.32 Chronic kidney disease, stage 3b; F03.90 Unspecified dementia, unspecified severity, without behavioral disturbance, psychotic disturbance, mood disturbance, and anxiety; Z79.84 Long term (current) use of oral hypoglycemic drugs; Z79.899 Other long term (current) drug therapy
CPT/HCPCS: 36415; 70450; 71045; 80048; 80053; 80307; 81001; 82962; 85007; 85025; 85027; 87426; 93005; 94640; G0378; J1100; J1815